=== PATIENT | male | born 1975 | race Caucasian/White ===

== ENCOUNTER 2017-02-24 23:56 | Observation (INO) | payer SELFPAY ==
--- NOTE | 2017-02-25 00:15 | C.PDOC ---
History Of Present Illness 41 yo male, presents with reported intoxication. pt reportly found outside restaurant at counts include 234 beds at the [facility], requesting to be transported to [facility]. at bedside, pt reports he has been consuming etoh, requesting water bedside. pt denies any trauma, hendrickson. pt oriented x 3, although slurred responses. limited history Time Seen by Provider: 02/24/17 23:58 Chief Complaint (Nursing): Substance Abuse Past Medical History Reviewed: Historical Data, Nursing Documentation, Vital Signs Vital Signs: Last Vital Signs Temp 97.8 F 02/25/17 05:51 Pulse 68 02/25/17 05:51 Resp 20 02/25/17 05:51 BP 109/73 02/25/17 05:51 Pulse Ox 98 02/25/17 05:51 Family History: States: Unknown Family Hx - Social History Hx Alcohol Use: No Hx Substance Use: No Review Of Systems Except As Marked, All Systems Reviewed And Found Negative. Physical Exam - Physical Exam Appears: Well, No Acute Distress, Unkempt, Other (odor of etoh) Skin: Normal Color, Warm, Dry Head: Atraumatic, Normacephalic Eye(s): bilateral: Normal Inspection, PERRL, EOMI Nose: Normal Throat: Normal Neck: Normal Cardiovascular: Rhythm Regular Respiratory: Normal Breath Sounds Gastrointestinal/Abdominal: Normal Exam, No Tenderness, No Guarding, No Rebound Back: Normal Inspection Extremity: Normal ROM ED Course And Treatment O2 Sat by Pulse Oximetry: 95 Medical Decision Making Medical Decision Making: suspected etoh abuse. no h/o of trauma, exam/vital unremarkable. will continue to reassess 550: pt awake, alert, ambulatory steady gait, taking po. stable for d/c ED OBSERVATION Date of observation admission: 02/25/17 Time of observation admission: 00:16 - Observation admission statement Patient is being placed in observation because:: etoh abuse - Goals of Observation Goals of observation are:: reassessments - Progress Note Progress Note: 02/25/17 01:59 pt sleeping in nad. 02/25/17 04:10 pt sleeping in nad Disposition - Disposition Disposition: HOME/ ROUTINE Disposition Time: 07:00 Condition: STABLE - Clinical Impression Clinical Impression: Alcohol abuse
[2017-02-25 05:52] VITALS: BP 109/73; PULSE 68; RESP 20; TEMP 97.8
[2017-02-25 06:02] VITALS: O2SAT 95
== END 2017-02-25 05:40 | disposition home or self-care (01) ==
LOC: C.ER 23:56 → MERGE 02-25 00:13 → C.9OBSV 02-25 00:13
PROVIDERS: ADMIT Student in an Organized Health Care Education/Training Program; ATTEND Student in an Organized Health Care Education/Training Program
DX: F10.120 Alcohol abuse with intoxication, uncomplicated (principal)
CPT/HCPCS: 82948; G0378

== ENCOUNTER 2017-08-15 02:26 | Emergency (ER) | payer SELFPAY ==
[2017-08-15 02:26] VITALS: BMI 29.0
[2017-08-15 02:41] VITALS: RESP 20
--- NOTE | 2017-08-15 03:01 | C.PDOC ---
History Of Present Illness 41 year old male brought in by EMS for public intoxication. Denies physical complaints at this time. Time Seen by Provider: 08/15/17 02:55 Chief Complaint (Nursing): Substance Abuse History Per: Patient History/Exam Limitations: no limitations Onset/Duration Of Symptoms: Hrs Current Symptoms Are (Timing): Still Present Suicide/Self Injury Attempted (Context): None Modifying Factor(s): Alcohol Associated Symptoms: denies: Depression, Suicidal Thoughts, Suicidal Plan Involuntary Hold By: None Recent travel outside of the [place]: No Past Medical History Reviewed: Historical Data, Nursing Documentation, Vital Signs Vital Signs: Last Vital Signs Temp 97.9 F 08/15/17 05:38 Pulse 88 08/15/17 05:38 Resp 20 08/15/17 05:38 BP 115/72 08/15/17 05:38 Pulse Ox 95 08/15/17 05:38 - Medical History PMH: Schizophrenia Surgical History: No Surg Hx - [facility] Procedures DETOXIFICATION SERVICES FOR SUBSTANCE ABUSE TREATMENT (05/01/16) GROUP PATIENT SERVICE SPECIALIST FOR SUBSTANCE ABUSE TREATMENT, PSYCHOEDUCATION (05/01/16) Family History: States: Unknown Family Hx - Social History Hx Alcohol Use: Yes (vodka beer daily denies recent alcohol use) Hx Substance Use: No - Immunization History Hx Tetanus Toxoid Vaccination: No Hx Influenza Vaccination: No Hx Pneumococcal Vaccination: No Review Of Systems Constitutional: Negative for: Fever, Chills Gastrointestinal: Negative for: Nausea, Vomiting, Diarrhea Physical Exam - Physical Exam Appears: Non-toxic, No Acute Distress, Other (ETOH on breath, no injuries noted) Skin: Normal Color, Warm, Dry Head: Atraumatic, Normacephalic Eye(s): bilateral: Normal Inspection, EOMI Oral Mucosa: Moist Neck: Normal, Supple Chest: Symmetrical Cardiovascular: Rhythm Regular Respiratory: Normal Breath Sounds, No Rales, No Rhonchi, No Wheezing Gastrointestinal/Abdominal: Soft, No Tenderness Neurological/Psych: Oriented x3, Normal Speech, Normal Cognition ED Course And Treatment O2 Sat by Pulse Oximetry: 96 Reevaluation Time: 05:24 Reassessment Condition: Improved Disposition Doctor Will See Patient In The: Office Counseled Patient/Family Regarding: Studies Performed, Diagnosis - Disposition Referrals: [facility] [Outside] [facility] [Outside] [facility] [Outside] Disposition: HOME/ ROUTINE Disposition Time: 05:24 Condition: GOOD Instructions: Abuse of Alcohol (ED) Forms: [employer] (Kyrgyz) Print Language: TANZANIAN - Clinical Impression Clinical Impression: Alcohol abuse - Scribe Statement The provider has reviewed the documentation as recorded by the Scribmike Billingsley All medical record entries made by the Evanibe were at my direction and personally dictated by me. I have reviewed the chart and agree that the record accurately reflects my personal performance of the history, physical exam, medical decision making, and the department course for this patient. I have also personally directed, reviewed, and agree with the discharge instructions and disposition.
[2017-08-15 05:40] VITALS: BP 115/72; PULSE 88; TEMP 97.9
[2017-08-15 05:58] VITALS: O2SAT 96
== END 2017-08-15 05:40 | disposition home or self-care (01) ==
LOC: C.ER 02:26
DX: F10.10 Alcohol abuse, uncomplicated (principal)

== ENCOUNTER 2017-08-15 22:36 | Emergency (ER) | payer SELFPAY ==
[2017-08-15 22:37] VITALS: BMI 29.0
[2017-08-15 22:42] VITALS: RESP 16
--- NOTE | 2017-08-16 00:04 | C.PDOC ---
History Of Present Illness 41 year old male presents to the ED seeking a place to sleep. Patient admits to drinking alcohol prior to arrival and denies any physical complaints, suicidal, or homicidal ideations. Time Seen by Provider: 08/15/17 22:42 Chief Complaint (Nursing): Substance Abuse History Per: Patient History/Exam Limitations: no limitations Onset/Duration Of Symptoms: Hrs Current Symptoms Are (Timing): Still Present Suicide/Self Injury Attempted (Context): None Modifying Factor(s): Alcohol Associated Symptoms: denies: Suicidal Thoughts Involuntary Hold By: None Past Medical History Reviewed: Historical Data, Nursing Documentation, Vital Signs Vital Signs: Last Vital Signs Temp 97.9 F 08/16/17 06:11 Pulse 67 08/16/17 06:11 Resp 16 08/16/17 06:11 BP 107/70 08/16/17 06:11 Pulse Ox 98 08/16/17 06:11 - Medical History PMH: Schizophrenia - [facility] Procedures DETOXIFICATION SERVICES FOR SUBSTANCE ABUSE TREATMENT (05/01/16) GROUP HOTEL SUPPLIES SALESPERSON FOR SUBSTANCE ABUSE TREATMENT, PSYCHOEDUCATION (05/01/16) Family History: States: Unknown Family Hx - Social History Hx Alcohol Use: Yes (vodka beer daily denies recent alcohol use) Hx Substance Use: No - Immunization History Hx Tetanus Toxoid Vaccination: No Hx Influenza Vaccination: No Hx Pneumococcal Vaccination: No Review Of Systems Constitutional: Negative for: Fever, Chills Cardiovascular: Negative for: Chest Pain Respiratory: Negative for: Shortness of Breath Gastrointestinal: Negative for: Nausea, Vomiting, Abdominal Pain Psych: Negative for: Suicidal ideation Physical Exam - Physical Exam Appears: Non-toxic, No Acute Distress Skin: Warm, Dry Head: Atraumatic, Normacephalic Eye(s): bilateral: Normal Inspection, PERRL, EOMI Oral Mucosa: Moist Neck: Supple Cardiovascular: Rhythm Regular, No Murmur Respiratory: No Rales, No Rhonchi, No Wheezing, Other (clear to auscultation bilaterally ) Gastrointestinal/Abdominal: Soft, No Tenderness, No Distention, No Guarding, No Rebound Extremity: Normal ROM, No Tenderness Neurological/Psych: Other (alert and no focal deficits ) ED Course And Treatment O2 Sat by Pulse Oximetry: 96 (RA) Medical Decision Making Medical Decision Making: At 630am, patient awake, steady gait. Will discharge. Disposition - Disposition Disposition: HOME/ ROUTINE Disposition Time: 06:32 Condition: STABLE Instructions: Alcohol Intoxication (ED) Forms: [employer] (East Timorese) - Clinical Impression Clinical Impression: Alcohol intoxication - Scribe Statement The provider has reviewed the documentation as recorded by the Scribe Amber Norman All medical record entries made by the Evanibe were at my direction and personally dictated by me. I have reviewed the chart and agree that the record accurately reflects my personal performance of the history, physical exam, medical decision making, and the department course for this patient. I have also personally directed, reviewed, and agree with the discharge instructions and disposition.
[2017-08-16 06:12] VITALS: BP 107/70; PULSE 67; TEMP 97.9
[2017-08-16 06:32] VITALS: O2SAT 96
== END 2017-08-16 07:06 | disposition home or self-care (01) ==
LOC: C.ER 22:36
DX: F10.129 Alcohol abuse with intoxication, unspecified (principal)

== ENCOUNTER 2017-11-15 17:59 | Emergency (ER) | payer SELFPAY ==
[2017-11-15 18:05] VITALS: BP 132/69; PULSE 94; RESP 18; TEMP 96.4; O2SAT 95
[2017-11-15 18:33] VITALS: BMI 22.1
--- NOTE | 2017-11-15 18:46 | C.PDOC ---
History Of Present Illness 41 y/o male was brought in by ambulance from [place] for public intoxication. Denies suicidal ideation or any physical complaints. PMHx of schizophrenia. Pt stayed in [facility] over night last night and was discharged this morning sober with no psychiatric complaints. Time Seen by Provider: 11/15/17 18:12 Chief Complaint (Nursing): Substance Abuse History Per: Patient History/Exam Limitations: no limitations Onset/Duration Of Symptoms: Hrs Current Symptoms Are (Timing): Still Present Suicide/Self Injury Attempted (Context): None Modifying Factor(s): Alcohol Associated Symptoms: denies: Anger, Suicidal Thoughts Involuntary Hold By: None Recent travel outside of the [place]: No Past Medical History Reviewed: Historical Data, Nursing Documentation, Vital Signs Vital Signs: Last Vital Signs Temp 96.4 F L 11/15/17 18:04 Pulse 94 H 11/15/17 18:04 Resp 18 11/15/17 18:04 BP 132/69 11/15/17 18:04 Pulse Ox 95 11/15/17 18:50 - Medical History PMH: Schizophrenia - [facility] Procedures DETOXIFICATION SERVICES FOR SUBSTANCE ABUSE TREATMENT (05/01/16) GROUP AUTOMATIC CENTRIFUGAL STATION OPERATOR FOR SUBSTANCE ABUSE TREATMENT, PSYCHOEDUCATION (05/01/16) Family History: States: Unknown Family Hx - Social History Hx Alcohol Use: Yes (vodka beer daily denies recent alcohol use) Hx Substance Use: No - Immunization History Hx Tetanus Toxoid Vaccination: No Hx Influenza Vaccination: No Hx Pneumococcal Vaccination: No Review Of Systems Constitutional: Negative for: Fever, Chills Cardiovascular: Negative for: Chest Pain Respiratory: Negative for: Cough, Shortness of Breath Gastrointestinal: Negative for: Nausea, Vomiting, Abdominal Pain Skin: Negative for: Rash Neurological: Negative for: Weakness, Numbness Psych: Negative for: Anxiety, Suicidal ideation Physical Exam - Physical Exam Appears: Well, No Acute Distress, Other (Thin male; Awake and alert; intoxicated ) Skin: Normal Color, Warm, Dry Head: Atraumatic, Normacephalic, Other (No injuries ) Eye(s): bilateral: Normal Inspection, PERRL Nose: No Discharge, No Epistaxis Oral Mucosa: Moist Throat: No Erythema, No Exudate Neck: Supple Chest: Symmetrical, No Tenderness Cardiovascular: Rhythm Regular Respiratory: Normal Breath Sounds, No Decreased Breath Sounds, No Rales, No Rhonchi, No Wheezing Gastrointestinal/Abdominal: Soft, No Tenderness, No Distention, No Guarding, No Rebound Extremity: Normal ROM Extremity: Bilateral: Normal Color And Temperature, Normal ROM Neurological/Psych: Oriented x3, Normal Speech, Normal Cognition, Other (no focal deficits ) ED Course And Treatment O2 Sat by Pulse Oximetry: 95 (RA) Pulse Ox Interpretation: Normal Reevaluation Time: 18:58 Reassessment Condition: Improved (stable gait, wants to be d/c now.) Medical Decision Making Medical Decision Making: alcohol abuse Disposition Doctor Will See Patient In The: Office Counseled Patient/Family Regarding: Studies Performed, Diagnosis - Disposition Disposition: HOME/ ROUTINE Disposition Time: 18:59 Condition: GOOD Forms: [facility] (Venezuelan) - Clinical Impression Clinical Impression: Alcohol abuse - Scribe Statement The provider has reviewed the documentation as recorded by the Heather Cade All medical record entries made by the Evanibmike were at my direction and personally dictated by me. I have reviewed the chart and agree that the record accurately reflects my personal performance of the history, physical exam, medical decision making, and the department course for this patient. I have also personally directed, reviewed, and agree with the discharge instructions and disposition.
== END 2017-11-15 19:40 | disposition home or self-care (01) ==
LOC: C.ER 17:59
DX: F10.10 Alcohol abuse, uncomplicated (principal); F20.9 Schizophrenia, unspecified

== ENCOUNTER 2018-02-08 02:13 | Emergency (ER) | payer SELFPAY ==
[2018-02-08 02:19] VITALS: BMI 34.2
--- NOTE | 2018-02-08 03:14 | C.PDOC ---
History Of Present Illness 42yo male brought to ER by EMS after he was noted to be publicly intoxicated. Patient admits to alcohol use tonight and offers no acute complaints. A full HPI and ROS is limited due to patient's intoxicated state. Time Seen by Provider: 02/08/18 02:40 Chief Complaint (Nursing): Substance Abuse History Per: EMS History/Exam Limitations: intoxication Modifying Factor(s): Alcohol Past Medical History Reviewed: Historical Data, Nursing Documentation, Vital Signs Vital Signs: Last Vital Signs Temp 97.5 F L 02/08/18 06:10 Pulse 82 02/08/18 06:10 Resp 16 02/08/18 06:10 BP 108/68 02/08/18 06:10 Pulse Ox 97 02/08/18 06:10 - Medical History PMH: Schizophrenia Denies: Diabetes, Hepatitis, HIV, HTN, Chronic Kidney Disease, Seizures, Sexually Transmitted Disease - [facility] Procedures DETOXIFICATION SERVICES FOR SUBSTANCE ABUSE TREATMENT (05/01/16) GROUP CHIEF JUVENILE PROBATION OFFICER FOR SUBSTANCE ABUSE TREATMENT, PSYCHOEDUCATION (05/01/16) Family History: States: Unknown Family Hx - Social History Hx Alcohol Use: Yes Hx Substance Use: No (DENIED) - Immunization History Hx Tetanus Toxoid Vaccination: No Hx Influenza Vaccination: No Hx Pneumococcal Vaccination: No Review Of Systems Review Of Systems: ROS cannot be obtained secondary to pt's inabilty to answer questions. (alcohol) Physical Exam - Physical Exam Appears: No Acute Distress, Other (poor hygeine) Skin: Normal Color Head: Atraumatic, Normacephalic Eye(s): bilateral: Normal Inspection Neck: Normal ROM, Supple Chest: Symmetrical Cardiovascular: Rhythm Regular Respiratory: Normal Breath Sounds Gastrointestinal/Abdominal: Normal Exam, Soft, No Tenderness Extremity: Normal ROM, No Deformity Pulses: Left Dorsalis Pedis: Normal, Right Dorsalis Pedis: Normal Neurological/Psych: Oriented x3, No Normal Motor, No Normal Sensation Medical Decision Making Medical Decision Making: Impression: Alcohol intoxication Plan: -- Frequent neuro checks Disposition - Disposition Referrals: [facility] [Outside] Disposition: HOME/ ROUTINE Disposition Time: 06:46 Condition: GOOD Instructions: Alcohol Abuse and Alcoholism (DC) Forms: [employer] (Kinyarwanda) Print Language: CAPE VERDEAN - Clinical Impression Clinical Impression: Alcohol abuse with intoxication - Scribe Statement The provider has reviewed the documentation as recorded by the Scribe (Evelia Francis) Provider Attestation: All medical record entries made by the Heather were at my direction and personally dictated by me. I have reviewed the chart and agree that the record accurately reflects my personal performance of the history, physical exam, medical decision making, and the department course for this patient. I have also personally directed, reviewed, and agree with the discharge instructions and disposition.
[2018-02-08 05:27] VITALS: O2SAT 97
[2018-02-08 06:10] VITALS: BP 108/68; PULSE 82; RESP 16; TEMP 97.5
== END 2018-02-08 06:42 | disposition home or self-care (01) ==
LOC: C.ER 02:13
DX: F10.129 Alcohol abuse with intoxication, unspecified (principal)

== ENCOUNTER 2018-03-30 11:36 | Emergency (ER) | payer SELFPAY ==
[2018-03-30 11:36] VITALS: BMI 34.2
--- NOTE | 2018-03-30 12:28 | C.PDOC ---
History Of Present Illness 42yo male, brought to ER by EMS for intoxication. Ful HPI and ROS unavailable as patient is obtunded. Time Seen by Provider: 03/30/18 12:21 Chief Complaint (Nursing): Substance Abuse History Per: EMS History/Exam Limitations: intoxication Current Symptoms Are (Timing): Still Present Modifying Factor(s): Alcohol Past Medical History Reviewed: Historical Data, Nursing Documentation, Vital Signs Vital Signs: Last Vital Signs Temp 97.6 F 03/30/18 11:47 Pulse 70 03/30/18 11:47 Resp 18 03/30/18 11:47 BP 102/66 03/30/18 11:47 Pulse Ox 96 03/30/18 17:36 - Medical History PMH: Schizophrenia Denies: Diabetes, Hepatitis, HIV, HTN, Chronic Kidney Disease, Seizures, Sexually Transmitted Disease Surgical History: No Surg Hx - [facility] Procedures DETOXIFICATION SERVICES FOR SUBSTANCE ABUSE TREATMENT (05/01/16) GROUP CONFERENCE DIRECTOR FOR SUBSTANCE ABUSE TREATMENT, PSYCHOEDUCATION (05/01/16) Family History: States: Unknown Family Hx - Social History Hx Alcohol Use: Yes Hx Substance Use: No (DENIED) - Immunization History Hx Tetanus Toxoid Vaccination: No Hx Influenza Vaccination: No Hx Pneumococcal Vaccination: No Review Of Systems Review Of Systems: ROS cannot be obtained secondary to pt's inabilty to answer questions. (intoxicated) Physical Exam - Physical Exam Appears: No Acute Distress Skin: Warm, Dry Head: Normacephalic, Other (old abrasions noted to face) Eye(s): bilateral: Normal Inspection Oral Mucosa: Moist Chest: Symmetrical Cardiovascular: Rhythm Regular Respiratory: Normal Breath Sounds, No Wheezing Gastrointestinal/Abdominal: Soft, No Tenderness Back: Normal Inspection, Other (no signs of injury or trauma) Extremity: Normal ROM, No Pedal Edema, Capillary Refill (< 2 seconds), No Deformity, No Swelling, Other (old appearin abrasion to left elbow) Gait: Unsteady ED Course And Treatment - Laboratory Results Result Diagrams: 03/30/18 12:46 03/30/18 12:46 O2 Sat by Pulse Oximetry: 96 (RA) Pulse Ox Interpretation: Normal Medical Decision Making Medical Decision Making: Impression: Alcohol intoxication Plan: -- Labs -- UDS Progress: 1517 Labs reviewed and patient with elevated sodium levels. Patient given IV fluids 1600 UDS reviewed and unremarkable. 1735 Patient complaining of chest pain. On exam, patient had reproducible left chest wall tenderness. Toradol 30 mg IVP. Disposition - Disposition Disposition: HOME/ ROUTINE Disposition Time: 18:24 Condition: GOOD Additional Instructions: Follow up with your pcp or medicine clinic in a few days and consider inpatient or outpatient detox. Forms: [employer] (Palauan) - Clinical Impression Clinical Impression: Alcohol abuse, Contusion of rib on left side - Scribe Statement The provider has reviewed the documentation as recorded by the Evanibe (Evelia Francis) Provider Attestation: All medical record entries made by the Evanibe were at my direction and personally dictated by me. I have reviewed the chart and agree that the record accurately reflects my personal performance of the history, physical exam, medical decision making, and the department course for this patient. I have also personally directed, reviewed, and agree with the discharge instructions and disposition.
[2018-03-30 12:49] LABS: BASO # 0.1 K/uL (0.0-0.2); BASO % 0.7 % (0.0-2.0); EOS # 0.1 K/uL (0.0-0.7); EOS % 1.6 % (0.0-4.0); HEMOGLOBIN 16.1 g/dL (12.0-18.0); LYMPH # 2.4 K/uL (1.0-4.3); LYMPH % 30.5 % (20.0-40.0); MEAN CELL VOLUME 89.2 fL (80.0-94.0); MEAN CORPUSCULAR HEMOGLOBIN 31.1 pg (27.0-31.0); MEAN CORPUSCULAR HGB CONC 34.9 g/dL (33.0-37.0); MEAN PLATELET VOLUME 7.8 fL (7.2-11.7); MONO # 0.3 K/uL (0.0-0.8); MONO % 3.7 % (0.0-10.0); NEUT # 5.1 K/uL (1.8-7.0); NEUT % 63.5 % (50.0-75.0); NRBC % 0.1 % (0.0-2.0); RBC 5.17 Mil/uL (4.40-5.90); RED CELL DISTRIBUTION WIDTH 14.4 % (11.5-14.5)
[2018-03-30 13:05] LABS: BLOOD UREA NITROGEN 15 mg/dL (9-20); GFR AFRICAN-AMERICAN > 60; GFR NON-AFRICAN AMERICAN > 60
[2018-03-30 13:06] LABS: ALB/GLOB RATIO 1.6 (1.0-2.1); ALBUMIN 4.5 g/dL (3.5-5.0); ALT/SGPT 33 U/L (21-72); AST/SGOT 27 U/L (17-59); CALCIUM 8.3 mg/dl (8.6-10.4)
[2018-03-30] MEDS ORDERED: Folic Acid 1 MG, Thiamine 100 MG, Multivitamin (MVI) 10 ML in Dextrose 5% In Water 1,00... IV SCH ×2 (15:30→16:15)
[2018-03-30 16:39] LABS: BARBITURATES, UR NEGATIVE (NEGATIVE); BENZODIAZEPINES, UR NEGATIVE (NEGATIVE); OPIATES, UR NEGATIVE (NEGATIVE); PHENCYCLIDINE, UR NEGATIVE (NEGATIVE)
[2018-03-30 18:43] VITALS: BP 110/70; PULSE 79; RESP 16; TEMP 98.2; O2SAT 98
== END 2018-03-30 18:42 | disposition home or self-care (01) ==
LOC: C.ER 11:36
DX: F10.129 Alcohol abuse with intoxication, unspecified (principal); Y90.8 Blood alcohol level of 240 mg/100 ml or more; S20.212A Contusion of left front wall of thorax, initial encounter; X58.XXXA Exposure to other specified factors, initial encounter
CPT/HCPCS: 71046; 80053; 82948; 85025; 96365; 96366; 96375; 99283; G0480; J1885; J3411; J7070

== ENCOUNTER 2018-04-21 21:36 | Emergency (ER) | payer SELFPAY ==
--- NOTE | 2018-04-21 21:59 | C.PDOC ---
History Of Present Illness Patient brought in by EMs after being found intoxicated in the street. Patient has not verbalized any complaints at this time. Patient does not have any ID on him and there are no signs of trauma. Time Seen by Provider: 04/21/18 21:59 Chief Complaint (Nursing): Substance Abuse History Per: EMS History/Exam Limitations: no limitations Onset/Duration Of Symptoms: Hrs Current Symptoms Are (Timing): Still Present Suicide/Self Injury Attempted (Context): None Modifying Factor(s): Alcohol Severity: None Pain Scale Rating Of: 0 Associated Symptoms: denies: Depression, Suicidal Thoughts Involuntary Hold By: None Recent travel outside of the [place]: No Past Medical History Reviewed: Historical Data, Nursing Documentation, Vital Signs Vital Signs: Last Vital Signs Temp 97.6 F 04/22/18 05:09 Pulse 55 L 04/22/18 05:09 Resp 16 04/22/18 05:09 BP 97/60 L 04/22/18 05:09 Pulse Ox 96 04/22/18 05:09 Family History: States: Unknown Family Hx - Social History Hx Alcohol Use: Yes Hx Substance Use: (unknown) - Immunization History Hx Tetanus Toxoid Vaccination: (unknown) Hx Influenza Vaccination: (unknown) Hx Pneumococcal Vaccination: (unknown) Review Of Systems Constitutional: Negative for: Fever, Chills Cardiovascular: Negative for: Chest Pain, Palpitations Respiratory: Negative for: Cough, Shortness of Breath Gastrointestinal: Negative for: Nausea, Vomiting Physical Exam - Physical Exam Appears: Non-toxic, Other (ETOH on breath, no sign of injury, responds to questions) Skin: Warm, Dry Head: Normacephalic Oral Mucosa: Moist Chest: Symmetrical, No Tenderness Cardiovascular: Rhythm Regular Respiratory: No Rales, No Rhonchi, No Wheezing Gastrointestinal/Abdominal: Soft, No Tenderness Neurological/Psych: Oriented x3 ED Course And Treatment O2 Sat by Pulse Oximetry: 95 (Room air) Pulse Ox Interpretation: Normal Disposition Counseled Patient/Family Regarding: Studies Performed, Diagnosis, Need For Followup - Disposition Referrals: [facility] [Outside] Disposition: HOME/ ROUTINE Disposition Time: 21:59 Condition: FAIR Instructions: Alcohol Abuse and Alcoholism (DC) Forms: [facility] (Mauritanian) Print Language: HONDURAN - Clinical Impression Clinical Impression: Alcohol intoxication - Scribe Statement The provider has reviewed the documentation as recorded by the Scribmike Billingsley All medical record entries made by the Heather were at my direction and personally dictated by me. I have reviewed the chart and agree that the record accurately reflects my personal performance of the history, physical exam, medical decision making, and the department course for this patient. I have also personally directed, reviewed, and agree with the discharge instructions and disposition.
[2018-04-22 05:10] VITALS: BP 97/60; PULSE 55; RESP 16; TEMP 97.6
[2018-04-22 05:34] VITALS: O2SAT 95
== END 2018-04-22 05:46 | disposition home or self-care (01) ==
LOC: C.ER 21:36 → MERGE 21:36 → EDBD 21:36 → C.ER 04-22 05:46
DX: F10.129 Alcohol abuse with intoxication, unspecified (principal)

== ENCOUNTER 2018-04-22 14:14 | Emergency (ER) | payer SELFPAY ==
[2018-04-22 14:14] VITALS: BMI 34.2
[2018-04-22 15:35] LABS: BASO # 0.1 K/uL (0.0-0.2); BASO % 1.3 % (0.0-2.0); EOS # 0.4 K/uL (0.0-0.7); EOS % 5.6 % (0.0-4.0); HEMOGLOBIN 15.9 g/dL (12.0-18.0); LYMPH # 2.2 K/uL (1.0-4.3); LYMPH % 31.2 % (20.0-40.0); MEAN CORPUSCULAR HEMOGLOBIN 31.1 pg (27.0-31.0); MEAN CORPUSCULAR HGB CONC 34.6 g/dL (33.0-37.0); MONO # 0.3 K/uL (0.0-0.8); MONO % 3.7 % (0.0-10.0); NEUT # 4.1 K/uL (1.8-7.0); NEUT % 58.2 % (50.0-75.0); NRBC % 0.2 % (0.0-2.0); RBC 5.09 Mil/uL (4.40-5.90); RED CELL DISTRIBUTION WIDTH 14.4 % (11.5-14.5); WHITE BLOOD COUNT 7.1 K/uL (4.8-10.8)
[2018-04-22 15:39] LABS: SQUAMOUS EPITHIAL 1 /hpf (0-5); URINE BACTERIA RARE (<OCC); URINE BILIRUBIN NEGATIVE (NEGATIVE); URINE BLOOD NEGATIVE (NEGATIVE); URINE CLARITY Clear (Clear); URINE COLOR Straw (YELLOW); URINE GLUCOSE (UA) NORMAL (Normal); URINE LEUKOCYTE ESTERASE NEG Leu/uL (Negative); URINE PROTEIN NEGATIVE (NEGATIVE); URINE UROBILINOGEN NORMAL mg/dL (0.2-1.0)
[2018-04-22 15:55] LABS: ALB/GLOB RATIO 1.4 (1.0-2.1); ALBUMIN 4.3 g/dL (3.5-5.0); ALT/SGPT 37 U/L (21-72); AST/SGOT 32 U/L (17-59); BLOOD UREA NITROGEN 13 mg/dL (9-20); CALCIUM 8.7 mg/dl (8.6-10.4); GFR AFRICAN-AMERICAN > 60; GFR NON-AFRICAN AMERICAN > 60
[2018-04-22 16:30] LABS: BARBITURATES, UR NEGATIVE (NEGATIVE); BENZODIAZEPINES, UR NEGATIVE (NEGATIVE); OPIATES, UR NEGATIVE (NEGATIVE); PHENCYCLIDINE, UR NEGATIVE (NEGATIVE)
[2018-04-22 20:13] VITALS: BP 101/59; PULSE 87; RESP 18; TEMP 97.6; O2SAT 97
--- NOTE | 2018-04-22 21:11 | C.PDOC ---
Time Seen by Provider: 04/22/18 15:36 Chief Complaint (Nursing): Psychiatric Evaluation Past Medical History Vital Signs: Last Vital Signs Temp 97.6 F 04/22/18 20:11 Pulse 87 04/22/18 20:11 Resp 18 04/22/18 20:11 BP 101/59 L 04/22/18 20:11 Pulse Ox 97 04/22/18 20:11 - Medical History PMH: Schizophrenia Denies: Diabetes, Hepatitis, HIV, HTN, Chronic Kidney Disease, Seizures, Sexually Transmitted Disease - [facility] Procedures DETOXIFICATION SERVICES FOR SUBSTANCE ABUSE TREATMENT (05/01/16) GROUP COMPUTATIONAL CHEMIST FOR SUBSTANCE ABUSE TREATMENT, PSYCHOEDUCATION (05/01/16) Family History: States: Unknown Family Hx - Social History Hx Alcohol Use: Yes Hx Substance Use: No (DENIED) - Immunization History Hx Tetanus Toxoid Vaccination: No Hx Influenza Vaccination: No Hx Pneumococcal Vaccination: No ED Course And Treatment - Laboratory Results Result Diagrams: 04/22/18 14:57 04/22/18 14:57 O2 Sat by Pulse Oximetry: 97 Reevaluation Time: 21:10 Reassessment Condition: Improved (STABLE GAIT to bathroom, now denies SI/HI) Medical Decision Making Medical Decision Making: similar presentation last night alcoholism homeless malingering. Disposition Doctor Will See Patient In The: Office Counseled Patient/Family Regarding: Studies Performed, Diagnosis - Disposition Disposition: HOME/ ROUTINE Disposition Time: 21:11 Condition: GOOD - Clinical Impression Clinical Impression: Alcohol abuse
--- NOTE | 2018-04-22 21:11 | C.PDOC ---
History Of Present Illness 42 y/o male BIBA , for evaluation of public intoxication today. Patient states that he is hearing voices with no specific instructions.Patient was evaluated in [facility] [place] ER yesterday for ETOH intoxication. Of note, patient is well known to ER as he has viisted the ER multiple times for Time Seen by Provider: 04/22/18 15:36 Chief Complaint (Nursing): Psychiatric Evaluation History Per: Patient History/Exam Limitations: no limitations Onset/Duration Of Symptoms: Hrs Current Symptoms Are (Timing): Still Present Severity: Moderate Past Medical History Reviewed: Historical Data, Nursing Documentation, Vital Signs Vital Signs: Last Vital Signs Temp 97.6 F 04/22/18 20:11 Pulse 87 04/22/18 20:11 Resp 18 04/22/18 20:11 BP 101/59 L 04/22/18 20:11 Pulse Ox 97 04/22/18 21:37 - Medical History PMH: Schizophrenia Denies: Diabetes, Hepatitis, HIV, HTN, Chronic Kidney Disease, Seizures, Sexually Transmitted Disease Other Surgeries: Hx of surgeries - [facility] DETOXIFICATION SERVICES FOR SUBSTANCE ABUSE TREATMENT (05/01/16) GROUP SOFTWARE BUSINESS ANALYST FOR SUBSTANCE ABUSE TREATMENT, PSYCHOEDUCATION (05/01/16) Family History: States: No Known Family Hx - Social History Hx Alcohol Use: Yes Hx Substance Use: No (DENIED) - Immunization History Hx Tetanus Toxoid Vaccination: No Hx Influenza Vaccination: No Hx Pneumococcal Vaccination: No Review Of Systems Except As Marked, All Systems Reviewed And Found Negative. Constitutional: Negative for: Fever, Chills Physical Exam - Physical Exam Appears: Other (intoxicated) Skin: Normal Color, Warm, Dry, Other ((-) injuries) Head: Atraumatic, Normacephalic Eye(s): bilateral: Normal Inspection Nose: Normal Oral Mucosa: Moist Neck: Supple Chest: Symmetrical Cardiovascular: Rhythm Regular Respiratory: Normal Breath Sounds, No Rales, No Rhonchi, No Wheezing Gastrointestinal/Abdominal: Normal Exam, Soft, No Tenderness, No Guarding, No Rebound Extremity: Normal ROM Neurological/Psych: Oriented x3, Normal Speech ED Course And Treatment - Laboratory Results Result Diagrams: 04/22/18 14:57 04/22/18 14:57 O2 Sat by Pulse Oximetry: 97 (RA) Pulse Ox Interpretation: Normal Medical Decision Making Medical Decision Making: Plan: --Labs --UA Disposition Doctor Will See Patient In The: Office Counseled Patient/Family Regarding: Studies Performed, Diagnosis - Disposition Referrals: Alcoholics Anonymous [Outside] [facility] [Outside] [facility] [address] [place] [Outside] [facility] [Outside] [email or web address] [Outside] Disposition: HOME/ ROUTINE Disposition Time: 21:10 Condition: GOOD Additional Instructions: sigue con psychiatria y [facility] [place] pra desponibilidad. Instructions: Alcohol Abuse and Alcoholism (DC) Forms: [address] (British) Print Language: ENGLISH - Clinical Impression Clinical Impression: Alcohol abuse - Scribe Statement The provider has reviewed the documentation as recorded by the Evanibe Bony Oneill Provider Attestation: All medical record entries made by the Scribe were at my direction and personally dictated by me. I have reviewed the chart and agree that the record accurately reflects my personal performance of the history, physical exam, medical decision making, and the department course for this patient. I have also personally directed, reviewed, and agree with the discharge instructions and disposition.
== END 2018-04-22 21:21 | disposition home or self-care (01) ==
LOC: C.ER 14:14
DX: F10.10 Alcohol abuse, uncomplicated (principal); Y90.8 Blood alcohol level of 240 mg/100 ml or more
CPT/HCPCS: 80053; 81001; 85025; 99285; G0480

== ENCOUNTER 2018-04-23 02:27 | Emergency (ER) | payer SELFPAY ==
[2018-04-23 02:27] VITALS: BMI 34.2
--- NOTE | 2018-04-23 03:13 | C.PDOC ---
History Of Present Illness The patient is brought to the ED by ambulance for evaluation after he was found publicly intoxicated prior to arrival. Patient is familiar to this ED and has had prior visits with similar presentations. He admits to drinking earlier today , presents with no signs of obvious trauma, and has no complaints at this time. Time Seen by Provider: 04/23/18 03:13 Chief Complaint (Nursing): Substance Abuse History Per: Patient, EMS History/Exam Limitations: intoxication Onset/Duration Of Symptoms: Hrs Current Symptoms Are (Timing): Still Present Suicide/Self Injury Attempted (Context): None Modifying Factor(s): Alcohol Severity: None Pain Scale Rating Of: 0 Associated Symptoms: denies: Suicidal Thoughts, Suicidal Plan Involuntary Hold By: None Recent travel outside of the [place]: No Additional History Per: Patient, EMS Past Medical History Reviewed: Historical Data, Nursing Documentation, Vital Signs Vital Signs: Last Vital Signs Temp 98.1 F 04/23/18 02:35 Pulse 89 04/23/18 02:35 Resp 16 04/23/18 02:35 BP 109/70 04/23/18 02:35 Pulse Ox 97 04/23/18 03:39 - Medical History PMH: Schizophrenia Denies: Diabetes, Hepatitis, HIV, HTN, Chronic Kidney Disease, Seizures, Sexually Transmitted Disease Surgical History: No Surg Hx - [facility] Procedures DETOXIFICATION SERVICES FOR SUBSTANCE ABUSE TREATMENT (05/01/16) GROUP SHIP'S CARPENTER FOR SUBSTANCE ABUSE TREATMENT, PSYCHOEDUCATION (05/01/16) Family History: States: Unknown Family Hx - Social History Hx Alcohol Use: Yes Hx Substance Use: No (DENIED) - Immunization History Hx Tetanus Toxoid Vaccination: No Hx Influenza Vaccination: No Hx Pneumococcal Vaccination: No Review Of Systems Constitutional: Negative for: Fever, Chills Cardiovascular: Negative for: Chest Pain, Palpitations Respiratory: Negative for: Cough, Shortness of Breath Gastrointestinal: Negative for: Nausea, Vomiting, Abdominal Pain Skin: Negative for: Rash, Lesions, Jaundice, Bruising Neurological: Negative for: Weakness, Numbness Psych: Positive for: Other (EtOH intoxication ). Negative for: Suicidal ideation Physical Exam - Physical Exam Appears: Non-toxic, No Acute Distress, Other (visibly intoxicated ) Skin: Warm, Dry Head: Normacephalic Oral Mucosa: Moist, Other (alcohol on breath ) Chest: Symmetrical, No Deformity Cardiovascular: Rhythm Regular Respiratory: Normal Breath Sounds, No Accessory Muscle Use Gastrointestinal/Abdominal: Soft, No Tenderness Extremity: Normal ROM Neurological/Psych: Other (arousable to touch and verbal stimuli ) Gait: Unsteady ED Course And Treatment O2 Sat by Pulse Oximetry: 97 (on RA) Pulse Ox Interpretation: Normal Reevaluation Time: 04:36 Reassessment Condition: Improved Disposition Counseled Patient/Family Regarding: Studies Performed, Diagnosis, Need For Followup - Disposition Referrals: [facility] [Outside] Disposition: HOME/ ROUTINE Disposition Time: 03:13 Condition: FAIR Instructions: Alcohol Abuse and Alcoholism (DC) Forms: [facility] (Prydeinig) Print Language: VIETNAMESE - Clinical Impression Clinical Impression: Alcohol abuse with intoxication - Scribe Statement The provider has reviewed the documentation as recorded by the Scribe (Trina Tapia) Provider Attestation: All medical record entries made by the Scribe were at my direction and personally dictated by me. I have reviewed the chart and agree that the record accurately reflects my personal performance of the history, physical exam, medical decision making, and the department course for this patient. I have also personally directed, reviewed, and agree with the discharge instructions and disposition.
[2018-04-23 05:12] VITALS: BP 96/68; PULSE 66; RESP 18; TEMP 97.8; O2SAT 95
== END 2018-04-23 05:23 | disposition home or self-care (01) ==
LOC: C.ER 02:27
DX: F10.129 Alcohol abuse with intoxication, unspecified (principal); Y90.9 Presence of alcohol in blood, level not specified

== ENCOUNTER 2018-09-13 13:56 | Emergency (ER) | payer SELFPAY ==
[2018-09-13 13:57] VITALS: BMI 34.2
--- NOTE | 2018-09-13 16:22 | C.PDOC ---
History Of Present Illness 42 years old male brought in by ambulance for public intoxication. Patient has multiple vague contusions to his face and head. Patient has an unstable gait. Denies injuries, trauma or any physical complaints. Patient found to have glucose levels of 119 when he came to ER. Time Seen by Provider: 09/13/18 14:19 Chief Complaint (Nursing): Substance Abuse History Per: Patient, EMS History/Exam Limitations: no limitations Onset/Duration Of Symptoms: Hrs Current Symptoms Are (Timing): Still Present Suicide/Self Injury Attempted (Context): None Modifying Factor(s): Alcohol Associated Symptoms: denies: Suicidal Thoughts, Suicidal Plan Involuntary Hold By: None Recent travel outside of the [place]: No Past Medical History Reviewed: Historical Data, Nursing Documentation, Vital Signs Vital Signs: Last Vital Signs Temp 97.9 F 09/13/18 14:11 Pulse 71 09/13/18 14:11 Resp 18 09/13/18 14:11 BP 129/89 09/13/18 14:11 Pulse Ox 97 09/13/18 14:11 - Medical History PMH: Schizophrenia - [facility] Procedures DETOXIFICATION SERVICES FOR SUBSTANCE ABUSE TREATMENT (05/01/16) GROUP SALES REPRESENTATIVE PUBLICATIONS FOR SUBSTANCE ABUSE TREATMENT, PSYCHOEDUCATION (05/01/16) Family History: States: Unknown Family Hx - Social History Hx Alcohol Use: Yes Hx Substance Use: No (DENIED) - Immunization History Hx Tetanus Toxoid Vaccination: No Hx Influenza Vaccination: No Hx Pneumococcal Vaccination: No Review Of Systems Constitutional: Negative for: Fever, Chills Gastrointestinal: Negative for: Nausea, Vomiting, Abdominal Pain, Diarrhea Skin: Positive for: Other (Vague contusions to face and head ). Negative for: Rash Neurological: Negative for: Weakness, Numbness Psych: Negative for: Suicidal ideation Physical Exam - Physical Exam Appears: Non-toxic, No Acute Distress, Other (Intoxicated. ETOH on breath. ) Skin: Normal Color, Warm, Dry, No Rash Head: Atraumatic, Normacephalic Eye(s): bilateral: Normal Inspection, PERRL, EOMI Oral Mucosa: Moist Neck: Normal ROM, Supple Chest: Symmetrical, No Tenderness Cardiovascular: Rhythm Regular, No Murmur Respiratory: Normal Breath Sounds, No Rales, No Rhonchi, No Wheezing Gastrointestinal/Abdominal: Bowel Sounds, Soft, No Tenderness, No Distention, No Guarding Extremity: Normal ROM Extremity: Bilateral: Atraumatic, Normal Color And Temperature, Normal ROM Pulses: Left Radial: Normal, Right Radial: Normal Neurological/Psych: Oriented x3, Normal Speech Gait: Unsteady ED Course And Treatment O2 Sat by Pulse Oximetry: 97 (RA) Pulse Ox Interpretation: Normal Medical Decision Making Medical Decision Making: Plan: * Blood work chronic alcohol abuse 1620: stable gait, ate lunch and a few juices Disposition Doctor Will See Patient In The: Office Counseled Patient/Family Regarding: Studies Performed, Diagnosis - Disposition Referrals: Alcoholics Anonymous [Outside] [facility] [employer] [facility] [Outside] [facility] [Outside] [facility] [Outside] [place] [id number] [Outside] Disposition: HOME/ ROUTINE Disposition Time: 16:23 Condition: GOOD Instructions: Alcohol Abuse and Alcoholism (DC) Forms: [facility] (Kyrgyz) Print Language: SLOVENIAN - Clinical Impression Clinical Impression: Alcohol abuse - Scribe Statement The provider has reviewed the documentation as recorded by the Scribe Shayne Cade All medical record entries made by the Scribe were at my direction and personally dictated by me. I have reviewed the chart and agree that the record accurately reflects my personal performance of the history, physical exam, medical decision making, and the department course for this patient. I have also personally directed, reviewed, and agree with the discharge instructions and disposition.
[2018-09-13 16:34] VITALS: BP 144/85; PULSE 74; RESP 17; TEMP 98.6; O2SAT 100
== END 2018-09-13 16:38 | disposition home or self-care (01) ==
LOC: C.ER 13:56
DX: F10.10 Alcohol abuse, uncomplicated (principal); F20.9 Schizophrenia, unspecified

== ENCOUNTER 2018-12-31 21:31 | Emergency (ER) | payer SELFPAY ==
[2018-12-31 21:34] VITALS: BMI 25.0
--- NOTE | 2018-12-31 21:46 | C.PDOC ---
History Of Present Illness 43 year old male is brought to the ED by assembly machine offbearer for alcohol intoxication. Patient was found sleeping outside, admits to drinking alcohol tonight. Patient denies SI, HI, hallucinations, injury, fall, trauma. Time Seen by Provider: 12/31/18 21:43 Chief Complaint (Nursing): Substance Abuse History Per: Patient, EMS History/Exam Limitations: intoxication Onset/Duration Of Symptoms: Hrs Current Symptoms Are (Timing): Still Present Suicide/Self Injury Attempted (Context): None Modifying Factor(s): Alcohol Associated Symptoms: denies: Depression, Suicidal Thoughts, Suicidal Plan Recent travel outside of the [place]: No Additional History Per: Patient, EMS Past Medical History Reviewed: Historical Data, Nursing Documentation, Vital Signs Vital Signs: Last Vital Signs Temp 97.6 F 12/31/18 21:39 Pulse 71 12/31/18 21:39 Resp BP 101/69 12/31/18 21:39 Pulse Ox 96 12/31/18 21:39 - Medical History PMH: Schizophrenia Denies: Diabetes, Hepatitis, HIV, HTN, Chronic Kidney Disease, Seizures, Sexually Transmitted Disease Surgical History: No Surg Hx - [facility] Procedures DETOXIFICATION SERVICES FOR SUBSTANCE ABUSE TREATMENT (05/01/16) GROUP TANK CLEANING SUPERVISOR FOR SUBSTANCE ABUSE TREATMENT, PSYCHOEDUCATION (05/01/16) Family History: States: Unknown Family Hx - Social History Hx Alcohol Use: Yes Hx Substance Use: No (DENIED) - Immunization History Hx Tetanus Toxoid Vaccination: No Hx Influenza Vaccination: No Hx Pneumococcal Vaccination: No Review Of Systems Constitutional: Negative for: Fever, Chills Cardiovascular: Negative for: Chest Pain Respiratory: Negative for: Cough, Shortness of Breath Skin: Negative for: Rash Neurological: Negative for: Weakness, Numbness Psych: Negative for: Depression, Suicidal ideation Physical Exam - Physical Exam Appears: Non-toxic, No Acute Distress, Other (intoxicated) Skin: Warm, Dry Head: Normacephalic Eye(s): bilateral: Normal Inspection Neck: Supple Chest: Symmetrical Cardiovascular: Rhythm Regular Respiratory: No Rales, No Rhonchi, No Wheezing Gastrointestinal/Abdominal: Soft, No Tenderness, No Guarding, No Rebound Extremity: Bilateral: Atraumatic, Normal Color And Temperature, Normal ROM Neurological/Psych: Oriented x3 Gait: Steady ED Course And Treatment O2 Sat by Pulse Oximetry: 96 (ON RA) Pulse Ox Interpretation: Normal Reevaluation Time: :21 Reassessment Condition: Improved Disposition Counseled Patient/Family Regarding: Studies Performed, Diagnosis, Need For Followup - Disposition Referrals: [facility] [Outside] Disposition: HOME/ ROUTINE Disposition Time: 21:46 Condition: FAIR Instructions: Alcohol Abuse and Alcoholism (DC) Forms: [email or web address] (Chinese) - Clinical Impression Clinical Impression: Alcohol abuse with intoxication - Scribe Statement The provider has reviewed the documentation as recorded by the Scribe Abdirashid Garcia All medical record entries made by the Scribe were at my direction and personally dictated by me. I have reviewed the chart and agree that the record accurately reflects my personal performance of the history, physical exam, medical decision making, and the department course for this patient. I have also personally directed, reviewed, and agree with the discharge instructions and disposition.
[2019-01-01 05:37] VITALS: BP 132/78; PULSE 74; RESP 17; TEMP 98.6; O2SAT 98
== END 2019-01-01 05:36 | disposition home or self-care (01) ==
LOC: C.ER 21:31
DX: F10.129 Alcohol abuse with intoxication, unspecified (principal); Y90.9 Presence of alcohol in blood, level not specified